=== PATIENT | female | born 1960 | race Caucasian/White ===

== ENCOUNTER 2024-01-04 10:42 | Emergency (ER) | payer OTHER, SELFPAY ==
[2024-01-04 11:03] VITALS: BP 160/112
[2024-01-04 13:06] LABS: % Basophils 1.1 % (0-2); % Eosinophils 1.8 % (0-6); % Immature Granulocytes 0.4 % (0-0.5); % Lymphocytes 21.7 % (20.5-51.1); % Monocytes 5.8 % (1.7-9.3); % Neutrophils 69.2 % (42.2-75.2); Absolute Basophils 0.1 10^3/uL (0-0.2); Absolute Eosinophils 0.1 10^3/uL (0-0.7); Absolute Monocytes 0.3 10^3/uL (0.1-0.6); Absolute Neutrophils 3.1 10^3/uL (1.4-6.5); Hematocrit 33.3 % (37.0-47.0); Mean Corpuscular Hgb 28.7 pg (27.0-31.0); Mean Corpuscular Volume 86.9 fL (81.0-99.0); Mean Platelet Volume 10.9 fL (7.4-10.4); Nucleated Red Blood Cells % 0 %; Platelet Count 149 10^3/uL (130-400); Red Blood Cell Count 3.83 10^6/uL (4.20-5.40); Red Cell Dist. Width 14.4 % (11.5-14.5); White Blood Cell Count 4.5 10^3/uL (4.8-10.8)
--- NOTE | 2024-01-04 13:07 | ED.GENMED ---
History of Present Illness
General
Chief Complaint: Fainting Sensation
Source: patient
Exam Limitations: none
Time Seen by Provider: 01/04/24 11:44
Travel History
Have you had any contact with someone who has COVID-19?: No
Do you have any symptoms of coronavirus? Fever > 100 degrees, chills, cough, shortness of breath, sore throat, loss of taste or smell, muscle aches, or headache?: No
History of Present Illness
History of Present Illness:
63-year-old female with history dgc-[id number] diabetes presents complaining of intermittent episodes of room spinning sensation. This tends to happen with change of position. She notes when she is turning to the left she noticed it more.
This is followed by waves of nausea with diaphoresis. No chest pain. No vision change. No neck pain. She notes a slight headache associated with this. No preceding URI symptoms. No unilateral numbness or weakness. Seen by family doctor
yesterday and symptoms returned and presented here today
Phy Exam
Physical Exam
Physical Exam:
General: Well-appearing female no acute respiratory distress
HEENT: Normocephalic atraumatic pupils equal round reactive to light: Subtle horizontal nystagmus noted on testing. TMs normal
Heart: Regular rate and rhythm no murmurs
Lungs: Clear to auscultation bilaterally no wheezing
Neurologic exam: Alert and oriented finger-nose [id number] intact. No facial asymmetry or slurred speech.
Extremities: No cyanosis or edema
Skin: Warm no rashes or lesions
Course
Orders/Labs/Results
Orders:
Orders
01/04/24 11:06
Electrocardiogram (*1) Urgent
Reason for Study: Syncope
EKG- Treatment ONCE
01/04/24 12:54
CT Head W/o Iv Contrast Urgent
Comment:
Reason For Exam: headache, dizzy
Orthostatic VS- Treatment ONCE
01/04/24 13:01
Complete Blood Count/With Diff Urgent
Comprehensive Metabolic Panel Urgent
Abnormal Lab Results
01/04/24
13:01
WBC 4.5 L 10^3/uL
(4.8-10.8)
RBC 3.83 L 10^6/uL
(4.20-5.40)
Hgb 11.0 L g/dL
(12.0-16.0)
Hct 33.3 L %
(37.0-47.0)
MPV 10.9 H fL
(7.4-10.4)
Absolute Lymphs (auto) 1.0 L 10^3/uL
(1.2-3.4)
Potassium 5.4 H mmol/L
(3.5-5.1)
BUN 21 H mg/dl
(7-17)
Glucose 140 H mg/dl
(70-99)
01/04/24 13:01
01/04/24 13:01
Vital Signs
Initial and Last Documented VS:
Initial Vital Signs
Temp Pulse Resp BP Pulse Ox
98.2 F 57 18 160/112 100
01/04/24 11:03 01/04/24 11:03 01/04/24 11:03 01/04/24 11:03 01/04/24 11:03
Last Documented Vital Signs
Temp Pulse Resp BP Pulse Ox
98.2 F 57 18 160/112 100
01/04/24 11:03 01/04/24 11:03 01/04/24 11:03 01/04/24 11:03 01/04/24 11:03
MDM/Problems Addressed
Differential Diagnosis Includes:
Dizziness. Seems to be worse with change in position. Question possible vertigo. Will check orthostatics. She does note a headache. Will order CT of the head. Labs pending.
*Critical Care Note
Total Time (30-74mins, 75-104mins- exclusive of procedures): Not Applicable
Update Note
Update Note:
CT negative. Dizziness has improved since arrival. Suspect underlying positional vertigo. Will prescribe meclizine
ED Attending Note
-
Portions of this chart may have been created with voice recognition software.� Occasional wrong word or��sound alike� substitutions may have occurred due to the inherent limitations of voice recognition software.
Discharge Plan
Departure
Patient Disposition: Home (Routine Discharge)
Date of Disposition: 01/04/24
Time of Disposition: 14:58
Patient with high blood pressure during this ER visit?: No
Discharge Problem:
Dizziness
Instructions: Dizziness
Prescriptions:
New
meclizine 25 mg tablet
25 mg PO BID PRN (Reason: dizziness) Qty: 10 0RF
Referrals:
Aristides Rodriguez PA-C [Family Provider] -
Activity Restrictions/Additional Instructions:
Continue current medications. Drink plenty fluids. Return if worse otherwise follow-up with family doctor
Interventions
Interventions:
*Risk Screen - Suicide Last Done: 01/04/24 11:03
*General Assessment Last Done: 01/04/24 11:03
*Neglect/Abuse Screening Last Done: 01/04/24 11:03
ED- Fall Risk Assessment Last Done: 01/04/24 15:30
*ED COVID-19 Vaccine History Last Done: 01/04/24 11:03
*Nursing Disposition Last Done: 01/04/24 15:30
ED- Cardiac Assessment Last Done: 01/04/24 15:30
ED- Neurological Assessment Last Done: 01/04/24 15:31
Discharge Date and Time
Discharge Date/Time: 01/04/24 15:31
[2024-01-04 13:19] LABS: ALT (SGPT) 13 U/L (0-35); AST (SGOT) 22 U/L (14-36); Albumin 3.9 g/dl (3.5-5.0); Alkaline Phosphatase 70 U/L (38-126); Blood Urea Nitrogen 21 mg/dl (7-17); Carbon Dioxide 28 mmol/L (22-30); Chloride 103 mmol/L (98-107); Glucose 140 mg/dl (70-99); Potassium 5.4 mmol/L (3.5-5.1); Sodium 135 mmol/L (135-145); Total Bilirubin 0.8 mg/dl (0.2-1.3); Total Protein 6.4 g/dl (6.3-8.2); eGFR > 60.00
[2024-01-04 15:13] VITALS: BP 134/56; BP 143/58; BP 144/62; PULSE 50; PULSE 52; PULSE 56
== END 2024-01-04 15:31 | disposition home or self-care (01) ==
LOC: EMR 10:42
PROVIDERS: EMERGENCY PHYSICIAN Emergency Medicine; FAMILY PHYSICIAN Physician Assistant Medical
DX: R42 Dizziness and giddiness (principal); E11.9 Type 2 diabetes mellitus without complications
CPT/HCPCS: 99284; 70450; 80053; 85025; 93005

== ENCOUNTER → 2025-08-02 08:40 | Outpatient (REF) | payer MEDICARE, OTHER, SELFPAY ==
[2025-08-02 09:38] LABS: Hematocrit 36.2 % (37.0-47.0); Hemoglobin 11.8 g/dL (12.0-16.0); Mean Corp Hgb Conc. 32.6 g/dL (33.0-37.0); Mean Corpuscular Volume 90.7 fL (81.0-99.0); Nucleated Red Blood Cells % 0 %; Platelet Count 174 10^3/uL (130-400); Red Cell Dist. Width 13.5 % (11.5-14.5)
[2025-08-02 09:49] LABS: ALT (SGPT) 15 U/L (0-35); AST (SGOT) 22 U/L (14-36); Albumin 4.5 g/dl (3.5-5.0); Alkaline Phosphatase 58 U/L (38-126); Blood Urea Nitrogen 37 mg/dl (7-17); Calcium 9.4 mg/dl (8.4-10.2); Carbon Dioxide 26 mmol/L (22-30); Chloride 102 mmol/L (98-107); Glucose 85 mg/dl (70-99); HDL Cholesterol 60 mg/dl; LDL Cholesterol, Calculated 80 mg/dl; Potassium 4.8 mmol/L (3.5-5.1); Sodium 137 mmol/L (135-145); Total Protein 7.3 g/dl (6.3-8.2); Very Low Density Lipoprotein 18 mg/dl (0-30); eGFR > 60.00
[2025-08-02 10:36] LABS: TSH 6.38 uIU/ml (0.47-4.68)
[2025-08-02 10:55] LABS: Vitamin B12 736 pg/ml (239-931)
[2025-08-02 12:43] LABS: Folate > 20.0 ng/ml (2.76-20)
[2025-08-02 12:47] LABS: Glycohemoglobin (HgbA1c) 5.3 % (4.0-5.6)
== END ==
LOC: REG 08:40
PROVIDERS: ATTENDING PHYSICIAN Physician Assistant Medical
DX: E11.3293 Type 2 diabetes mellitus with mild nonproliferative diabetic retinopathy without macular edema, bilateral (principal); I10 Essential (primary) hypertension; D64.9 Anemia, unspecified; D51.9 Vitamin B12 deficiency anemia, unspecified
CPT/HCPCS: 36415; 80053; 80061; 82607; 82746; 83036; 84443; 85025